=== PATIENT | female | born 1955 | race Caucasian/White ===

== ENCOUNTER 2017-02-06 10:25 | Emergency (ER) | payer OTHER ==
[~2017-02-06] VITALS: Ht 152.4 cm; Wt 50.0 kg
[~2017-02-06 10:25] MED LIST: FOLI-43 PO; LACO100T2 PO; LAMO200T PO; LEVE1000 PO; LEVO50TA8 PO; TOPI100T37 PO; TRAZ-129 PO
[2017-02-06 12:21] LABS: CLARITY URINE CLEAR (CLEAR); COLOR URINE YELLOW (YELLOW); GLUCOSE URINE NEGATIVE (NEGATIVE); KETONES URINE NEGATIVE (NEGATIVE); LEUKOCYTE ESTERASE URINE NEGATIVE (NEGATIVE); NITRITE URINE NEGATIVE (NEGATIVE); OCCULT BLOOD URINE NEGATIVE (NEGATIVE); PH URINE 5.5 (4.5-8.0); PROTEIN URINE 1+ (NEGATIVE); SPECIFIC GRAVITY URINE 1.025 (1.005-1.030); UROBILINOGEN URINE 0.2 E.U./dL (0.2-1.0)
[2017-02-06 12:23] LABS: HEMATOCRIT. 40.6 % (36.0-48.0); HEMOGLOBIN. 13.5 g/dL (12.0-16.0); MEAN CORPUSCULAR VOLUME 102.1 fL (81.0-99.0); MEAN PLATELET VOLUME 7.6 fl (7.4-10.4); PLATELET 163 x1000/uL (130-400); RED BLOOD CELL COUNT 3.98 mill/uL (4.2-5.4); RED CELL DISTRIBUTION WIDTH 12.7 % (11.6-14.6)
[2017-02-06 12:28] LABS: INR 1.1; PROTHROMBIN TIME 11.6 sec
[2017-02-06] MEDS ORDERED: HYDROCODONE/ACETAMINOPHEN 5/325MG TABLET PO ONE (12:30)
[2017-02-06 12:38] LABS: CARBON DIOXIDE 21 mEq/L (21-32); CHLORIDE 115 mEq/L (98-107); TROPONIN I < 0.02 ng/mL (0.00-0.04)
[2017-02-06 13:12] LABS: PLATELET ESTIMATE NORMAL
[2017-02-06 16:00] VITALS: BP 109/68
== END 2017-02-06 16:01 | disposition home or self-care (01) ==
LOC: ER 12:30
DX: M54.2 Cervicalgia (principal); M54.6 Pain in thoracic spine; R42 Dizziness and giddiness; E27.8 Other specified disorders of adrenal gland; Z88.8 Allergy status to other drugs, medicaments and biological substances; W19.XXXA Unspecified fall, initial encounter; Y93.89 Activity, other specified; Y92.89 Other specified places as the place of occurrence of the external cause; Y99.8 Other external cause status
CPT/HCPCS: 36415; 70450; 71010; 72125; 72128; 80053; 81001; 83880; 84484; 85025; 85610; 93005; 99285

== ENCOUNTER 2017-03-09 12:16 | Emergency (ER) | payer OTHER ==
[~2017-03-09] VITALS: Ht 152.4 cm; Wt 57.0 kg
[2017-03-09] MEDS ORDERED: BACITRACIN ZINC OINT UDPKT TOP ONE (13:45)
[2017-03-09] MEDS ORDERED: ACETAMINOPHEN 325MG TABLET PO ONE (13:45)
[2017-03-09 16:15] VITALS: BP 123/73
== END 2017-03-09 16:28 | disposition home or self-care (01) ==
LOC: ER 13:36
DX: S40.212A Abrasion of left shoulder, initial encounter (principal); R51 Headache; M54.5 Low back pain; M54.6 Pain in thoracic spine; M25.512 Pain in left shoulder; M54.2 Cervicalgia; R20.0 Anesthesia of skin; Y93.89 Activity, other specified; V79.59XA Passenger on bus injured in collision with other motor vehicles in traffic accident, initial encounter; Y92.410 Unspecified street and highway as the place of occurrence of the external cause; G40.909 Epilepsy, unspecified, not intractable, without status epilepticus; Z90.49 Acquired absence of other specified parts of digestive tract; Z79.899 Other long term (current) drug therapy
CPT/HCPCS: 70450; 72070; 72100; 72125; 73030; 99284

== ENCOUNTER 2017-09-07 16:34 | Emergency (ER) | payer OTHER ==
[~2017-09-07] VITALS: Ht 149.9 cm; Wt 65.0 kg
[2017-09-07 18:50] VITALS: BP 132/82
[2017-09-07] MEDS: KETOROLAC 60MG/2ML VIAL IM ONE (18:50)
[2017-09-07 19:43] LABS: BASOPHILS % 0.3 % (0.0-2.0); EOSINOPHILS % 0.8 % (0.0-5.0); HEMATOCRIT. 41.8 % (36.0-48.0); HEMOGLOBIN. 13.8 g/dL (12.0-16.0); LYMPHOCYTES % 11.6 % (20.0-50.0); MEAN CORPUSCULAR HEMOGLOBIN 33.8 pg (28.0-32.0); MEAN CORPUSCULAR VOLUME 102.2 fL (81.0-99.0); MONOCYTES % 5.1 % (2.0-8.0); NEUTROPHILS % 82.2 % (40.0-76.0); PLATELET 185 x1000/uL (130-400); RED BLOOD CELL COUNT 4.09 mill/uL (4.2-5.4)
[2017-09-07 19:47] LABS: INR 1.1; PROTHROMBIN TIME 11.3 sec (9.4-11.6)
[2017-09-07 19:51] LABS: CHLORIDE 114 mEq/L (98-107)
[2017-09-07 19:58] LABS: TROPONIN I < 0.02 ng/mL (0.00-0.04)
[2017-09-07] MEDS: ACETAMINOPHEN 325MG TABLET PO ONE (20:15)
== END 2017-09-07 22:08 | disposition home or self-care (01) ==
LOC: ER 19:01
DX: R07.89 Other chest pain (principal); R51 Headache; Y04.0XXA Assault by unarmed brawl or fight, initial encounter; F41.9 Anxiety disorder, unspecified; E78.00 Pure hypercholesterolemia, unspecified; J44.9 Chronic obstructive pulmonary disease, unspecified
CPT/HCPCS: 36415; 71045; 80053; 83880; 84484; 85025; 85610; 93005; 96372; 99285; J1885

== ENCOUNTER 2017-10-08 19:18 | Emergency (ER) | payer OTHER ==
[~2017-10-08] VITALS: Ht 154.9 cm; Wt 51.0 kg
[2017-10-08] MEDS ORDERED: SODIUM CHLORIDE 0.9% 1,000 ML IV ONE (19:49)
[2017-10-08] MEDS ORDERED: KETOROLAC 30MG/ML VIAL IV ONE (20:00)
[2017-10-08 20:19] LABS: BASOPHILS % 0.5 % (0.0-2.0); HEMATOCRIT. 39.1 % (36.0-48.0); HEMOGLOBIN. 13.1 g/dL (12.0-16.0); LYMPHOCYTES % 11.5 % (20.0-50.0); MEAN CORPUSCULAR HEMOGLOBIN 34.2 pg (28.0-32.0); MEAN CORPUSCULAR VOLUME 101.6 fL (81.0-99.0); MEAN PLATELET VOLUME 8.1 fl (7.4-10.4); MONOCYTES % 4.4 % (2.0-8.0); NEUTROPHILS % 82.6 % (40.0-76.0); PLATELET 155 x1000/uL (130-400); RED BLOOD CELL COUNT 3.85 mill/uL (4.2-5.4); RED CELL DISTRIBUTION WIDTH 12.9 % (11.6-14.6)
[2017-10-08 20:28] LABS: CHLORIDE 116 mEq/L (98-107)
[2017-10-08] MEDS ORDERED: POTASSIUM CHLORIDE 20MEQ TABLET SR PO ONE (21:15)
[2017-10-08 22:25] VITALS: BP 122/70
== END 2017-10-08 22:27 | disposition home or self-care (01) ==
LOC: ER 19:49
DX: E87.6 Hypokalemia (principal); I10 Essential (primary) hypertension; F41.9 Anxiety disorder, unspecified
CPT/HCPCS: 36415; 80048; 85025; 96361; 96374; 99284; C1893; J1885; J7030; J7040; Z7610

== ENCOUNTER 2017-10-09 13:29 | Emergency (ER) | payer OTHER ==
[~2017-10-09] VITALS: Ht 162.6 cm; Wt 55.0 kg
[2017-10-09 18:30] VITALS: BP 121/68
== END 2017-10-09 18:48 | disposition home or self-care (01) ==
LOC: ER 13:29
DX: M25.512 Pain in left shoulder (principal); M25.552 Pain in left hip; M79.1 Myalgia; H53.8 Other visual disturbances; I10 Essential (primary) hypertension; F41.9 Anxiety disorder, unspecified
CPT/HCPCS: 71045; 99283

== ENCOUNTER 2017-10-11 22:26 | Emergency (ER) | payer OTHER ==
[~2017-10-11] VITALS: Ht 154.9 cm; Wt 64.0 kg
[2017-10-11 23:12] LABS: HEMATOCRIT. 41.2 % (36.0-48.0); HEMOGLOBIN. 13.9 g/dL (12.0-16.0); MEAN CORPUSCULAR HEMOGLOBIN 34.4 pg (28.0-32.0); MEAN CORPUSCULAR VOLUME 101.8 fL (81.0-99.0); MEAN PLATELET VOLUME 8.2 fl (7.4-10.4); PLATELET 174 x1000/uL (130-400); RED BLOOD CELL COUNT 4.05 mill/uL (4.2-5.4)
[2017-10-11 23:14] LABS: CHLORIDE 111 mEq/L (98-107)
[2017-10-12 02:53] LABS: CLARITY URINE CLEAR (CLEAR); COLOR URINE YELLOW (YELLOW); KETONES URINE NEGATIVE (NEGATIVE); LEUKOCYTE ESTERASE URINE NEGATIVE (NEGATIVE); NITRITE URINE NEGATIVE (NEGATIVE); OCCULT BLOOD URINE NEGATIVE (NEGATIVE); PH URINE 5.5 (4.5-8.0); PROTEIN URINE NEGATIVE (NEGATIVE); SPECIFIC GRAVITY URINE 1.016 (1.005-1.030); UROBILINOGEN URINE 0.2 E.U./dL (0.2-1.0)
[2017-10-12 03:14] LABS: PLATELET ESTIMATE NORMAL
[2017-10-12 03:45] VITALS: BP 139/88
== END 2017-10-12 04:15 | disposition home or self-care (01) ==
LOC: ER 22:26
DX: N20.0 Calculus of kidney (principal); L72.3 Sebaceous cyst; E27.9 Disorder of adrenal gland, unspecified; R42 Dizziness and giddiness; E03.9 Hypothyroidism, unspecified; G40.909 Epilepsy, unspecified, not intractable, without status epilepticus; Z98.890 Other specified postprocedural states; Z93.3 Colostomy status
CPT/HCPCS: 36415; 74176; 80053; 81003; 85025; 93005; 99285; Z7610

== ENCOUNTER 2018-01-04 18:31 | Emergency (ER) | payer OTHER ==
[~2018-01-04] VITALS: Ht 154.9 cm; Wt 50.0 kg
[2018-01-04 19:20] LABS: BASOPHILS % 0.4 % (0.0-2.0); EOSINOPHILS % 1.9 % (0.0-5.0); HEMOGLOBIN. 12.6 g/dL (12.0-16.0); LYMPHOCYTES % 12.1 % (20.0-50.0); MEAN CORPUSCULAR HEMOGLOBIN 34.2 pg (28.0-32.0); MEAN CORPUSCULAR VOLUME 102.8 fL (81.0-99.0); MEAN PLATELET VOLUME 7.6 fl (7.4-10.4); MONOCYTES % 4.8 % (2.0-8.0); NEUTROPHILS % 80.8 % (40.0-76.0); PLATELET 153 x1000/uL (130-400); RED CELL DISTRIBUTION WIDTH 12.9 % (11.6-14.6)
[2018-01-04] MEDS ORDERED: MECLIZINE 25MG TABLET PO ONE (19:30)
[2018-01-04 23:11] VITALS: BP 123/63
== END 2018-01-04 23:13 | disposition home or self-care (01) ==
LOC: ER 19:43
DX: R42 Dizziness and giddiness (principal); H55.09 Other forms of nystagmus; I10 Essential (primary) hypertension; G40.909 Epilepsy, unspecified, not intractable, without status epilepticus; Z79.899 Other long term (current) drug therapy
CPT/HCPCS: 36415; 80048; 85025; 99284; J8597

== ENCOUNTER 2018-05-10 07:16 | Emergency (ER) | payer OTHER ==
[~2018-05-10] VITALS: Ht 152.4 cm; Wt 66.0 kg
[~2018-05-10 07:16] MED LIST changes: -TRAZ-129 PO; +TRAZ-212 PO
[2018-05-10] MEDS ORDERED: ASPIRIN 81MG TABLET PO ONE (08:45)
[2018-05-10 09:40] LABS: BASOPHILS % 0.6 % (0.0-2.0); EOSINOPHILS % 2.9 % (0.0-5.0); HEMATOCRIT. 43.5 % (36.0-48.0); HEMOGLOBIN. 14.2 g/dL (12.0-16.0); LYMPHOCYTES % 19.5 % (20.0-50.0); MEAN CORPUSCULAR HEMOGLOBIN 33.8 pg (28.0-32.0); MEAN CORPUSCULAR VOLUME 103.6 fL (81.0-99.0); MONOCYTES % 6.1 % (2.0-8.0); NEUTROPHILS % 70.9 % (40.0-76.0); PLATELET 177 x1000/uL (130-400); RED CELL DISTRIBUTION WIDTH 12.9 % (11.6-14.6)
[2018-05-10 09:46] LABS: INR 1.1; PROTHROMBIN TIME 10.6 sec (9.1-11.1)
[2018-05-10 09:50] LABS: CHLORIDE 117 mEq/L (98-107)
[2018-05-10 09:55] LABS: CLARITY URINE CLEAR (CLEAR); COLOR URINE YELLOW (YELLOW); KETONES URINE NEGATIVE (NEGATIVE); LEUKOCYTE ESTERASE URINE NEGATIVE (NEGATIVE); NITRITE URINE NEGATIVE (NEGATIVE); OCCULT BLOOD URINE NEGATIVE (NEGATIVE); PH URINE 5.5 (4.5-8.0); PROTEIN URINE NEGATIVE (NEGATIVE); UROBILINOGEN URINE 0.2 E.U./dL (0.2-1.0)
[2018-05-10 13:21] VITALS: BP 106/71
== END 2018-05-10 13:23 | disposition home or self-care (01) ==
LOC: ER 07:16
DX: R07.89 Other chest pain (principal); G40.909 Epilepsy, unspecified, not intractable, without status epilepticus; D72.819 Decreased white blood cell count, unspecified; R00.1 Bradycardia, unspecified; Z93.3 Colostomy status; Z95.0 Presence of cardiac pacemaker; Z85.038 Personal history of other malignant neoplasm of large intestine; Z98.890 Other specified postprocedural states
CPT/HCPCS: 36415; 71045; 81025; 83880; 84484; 93005; 99285

== ENCOUNTER 2019-08-11 10:18 | Emergency (ER) | payer OTHER ==
[~2019-08-11] VITALS: Ht 152.4 cm; Wt 54.0 kg
[~2019-08-11 10:18] MED LIST changes: +ASPI-1158 PO; +KEPP500 PO; -LACO100T2 PO; +LACO150T2 PO; +LAM1 PO; -LAMO200T PO; -LEVE1000 PO; -LEVO50TA8 PO; +TOP100 PO; -TOPI100T37 PO; -TRAZ-212 PO
[2019-08-11] MEDS ORDERED: VISCOUS LIDOCAINE 2% 15 ML UDC PO ONE (13:30)
[2019-08-11] MEDS ORDERED: MAGNESIUM/ALUMINUM HYDROXIDE/SIMETHICONE 30ML UDC PO ONE (13:30)
[2019-08-11] MEDS ORDERED: DICYCLOMINE 10 MG/5 ML ORAL SYR PO ONE (13:30)
[2019-08-11 14:58] LABS: HEMATOCRIT. 44.5 % (36.0-48.0); HEMOGLOBIN. 14.4 g/dL (12.0-16.0); MEAN CORPUSCULAR HEMOGLOBIN 33.9 pg (28.0-32.0); MEAN CORPUSCULAR VOLUME 104.8 fL (81.0-99.0); MEAN PLATELET VOLUME 7.7 fl (7.4-10.4); PLATELET 162 x1000/uL (130-400); RED BLOOD CELL COUNT 4.24 mill/uL (4.2-5.4); RED CELL DISTRIBUTION WIDTH 13.2 % (11.6-14.6)
[2019-08-11 15:03] LABS: CHLORIDE 116 mEq/L (98-107)
[2019-08-11] MEDS ORDERED: ONDANSETRON HCL 4MG/2ML INJ IV STA (15:21)
[2019-08-11] MEDS ORDERED: MORPHINE SULFATE 4 MG/ML CPJ (NOT FOR IM USE) IV STA (15:21)
[2019-08-11 15:39] LABS: PLATELET ESTIMATE NORMAL
[2019-08-11 19:35] VITALS: BP 110/51
== END 2019-08-11 19:40 | disposition short-term general hospital (02) ==
LOC: ER 10:18
DX: R10.9 Unspecified abdominal pain (principal); K85.90 Acute pancreatitis without necrosis or infection, unspecified; I51.9 Heart disease, unspecified; R56.9 Unspecified convulsions; Z93.3 Colostomy status; Z95.0 Presence of cardiac pacemaker; Z79.82 Long term (current) use of aspirin; Z90.49 Acquired absence of other specified parts of digestive tract
CPT/HCPCS: 36415; 71045; 74176; 80053; 83690; 83880; 84484; 85025; 93005; 96374; 96375; 99285; J2270; J2405

== ENCOUNTER 2019-08-23 09:11 | Emergency (ER) | payer OTHER ==
[~2019-08-23] VITALS: Ht 152.4 cm; Wt 54.0 kg
[2019-08-23] MEDS ORDERED: ONDANSETRON HCL 4MG/2ML INJ IV STA (09:33)
[2019-08-23] MEDS ORDERED: FAMOTIDINE 20MG/2ML VIAL IV STA (09:33)
[2019-08-23] MEDS ORDERED: SODIUM CHLORIDE 0.9% 1,000 ML IV ONE (09:33)
[2019-08-23 10:03] LABS: CHLORIDE 119 mEq/L (98-107); HEMATOCRIT. 39.6 % (36.0-48.0); HEMOGLOBIN. 13.1 g/dL (12.0-16.0); MEAN CORPUSCULAR VOLUME 103.2 fL (81.0-99.0); RED BLOOD CELL COUNT 3.84 mill/uL (4.2-5.4); RED CELL DISTRIBUTION WIDTH 12.6 % (11.6-14.6)
[2019-08-23 10:04] LABS: INR 1.1
[2019-08-23 10:30] LABS: PLATELET ESTIMATE NORMAL
[2019-08-23 11:38] LABS: CLARITY URINE CLEAR (CLEAR); COLOR URINE YELLOW (YELLOW); KETONES URINE NEGATIVE (NEGATIVE); LEUKOCYTE ESTERASE URINE NEGATIVE (NEGATIVE); NITRITE URINE NEGATIVE (NEGATIVE); OCCULT BLOOD URINE NEGATIVE (NEGATIVE); PH URINE 5.5 (4.5-8.0); PROTEIN URINE NEGATIVE (NEGATIVE); SPECIFIC GRAVITY URINE 1.014 (1.005-1.030); UROBILINOGEN URINE 0.2 E.U./dL (0.2-1.0)
[2019-08-23] MEDS ORDERED: MORPHINE SULFATE 4 MG/ML CPJ (NOT FOR IM USE) IV NR (12:30)
[2019-08-23] MEDS ORDERED: ONDANSETRON HCL 4MG/2ML INJ IV NR (12:30)
[2019-08-23 17:30] VITALS: BP 93/63
== END 2019-08-23 18:14 | disposition short-term general hospital (02) ==
LOC: ER 09:11
DX: K85.90 Acute pancreatitis without necrosis or infection, unspecified (principal); I51.9 Heart disease, unspecified; R42 Dizziness and giddiness; R51 Headache; R11.2 Nausea with vomiting, unspecified; R10.11 Right upper quadrant pain; R10.12 Left upper quadrant pain; Z90.49 Acquired absence of other specified parts of digestive tract; Z95.0 Presence of cardiac pacemaker; Z93.3 Colostomy status; Z79.899 Other long term (current) drug therapy; Z79.82 Long term (current) use of aspirin
CPT/HCPCS: 36415; 80053; 81003; 83690; 85025; 85610; 93005; 96361; 96374; 96375; 96376; 99285; J2270; J2405; J3490; J7030

== ENCOUNTER 2020-11-25 10:08 | Emergency (ER) | payer OTHER ==
[~2020-11-25] VITALS: Ht 165.1 cm; Wt 55.0 kg
[~2020-11-25 10:08] MED LIST changes: -ASPI-1158 PO; +ASPI-1406 PO
[2020-11-25 12:45] LABS: BASOPHILS % 0.3 % (0.0-2.0); EOSINOPHILS % 0.1 % (0.0-5.0); HEMATOCRIT. 40.6 % (36.0-48.0); HEMOGLOBIN. 13.6 g/dL (12.0-16.0); MEAN CORPUSCULAR HEMOGLOBIN 34.8 pg (28.0-32.0); MEAN CORPUSCULAR VOLUME 103.3 fL (81.0-99.0); MEAN PLATELET VOLUME 7.3 fl (7.4-10.4); MONOCYTES % 2.5 % (2.0-8.0); NEUTROPHILS % 88.1 % (40.0-76.0); PLATELET 162 x1000/uL (130-400); RED BLOOD CELL COUNT 3.93 mill/uL (4.2-5.4); RED CELL DISTRIBUTION WIDTH 12.4 % (11.6-14.6)
[2020-11-25 12:49] LABS: CHLORIDE 119 mEq/L (98-107)
[2020-11-25 12:53] LABS: ETHANOL BLOOD < 10 mg/dL
[2020-11-25 12:55] LABS: CLARITY URINE CLEAR (CLEAR); COLOR URINE YELLOW (YELLOW); KETONES URINE NEGATIVE (NEGATIVE); LEUKOCYTE ESTERASE URINE NEGATIVE (NEGATIVE); NITRITE URINE NEGATIVE (NEGATIVE); OCCULT BLOOD URINE NEGATIVE (NEGATIVE); PROTEIN URINE NEGATIVE (NEGATIVE); SPECIFIC GRAVITY URINE 1.011 (1.005-1.030); UROBILINOGEN URINE 0.2 E.U./dL (0.2-1.0)
[2020-11-25 12:58] LABS: PROTHROMBIN TIME 11.2 sec (9.6-11.0)
[2020-11-25 13:04] LABS: *AMPHETAMINES SCREEN URINE NEGATIVE (NEGATIVE); *BARBITURATES SCREEN URINE NEGATIVE (NEGATIVE); *BENZODIAZEPINES SCREEN URINE NEGATIVE (NEGATIVE)
[2020-11-25 13:06] LABS: *COCAINE SCREEN URINE NEGATIVE (NEGATIVE); CANNABINOID URINE SCREEN NEGATIVE (NEGATIVE); METHADONE URINE SCREEN NEGATIVE (NEGATIVE); OPIATES URINE SCREEN NEGATIVE (NEGATIVE); PHENCYCLIDINE URINE SCREEN NEGATIVE (NEGATIVE)
[2020-11-25] MEDS ORDERED: PROCHLORPERAZINE 10MG/2ML VIAL IV ONE (13:45)
[2020-11-25 16:18] VITALS: BP 102/54
== END 2020-11-25 16:58 | disposition home or self-care (01) ==
LOC: ER 10:08
DX: R51.9 Headache, unspecified (principal); R11.2 Nausea with vomiting, unspecified; I51.9 Heart disease, unspecified; Z87.19 Personal history of other diseases of the digestive system; Z90.49 Acquired absence of other specified parts of digestive tract; Z95.0 Presence of cardiac pacemaker; Z98.890 Other specified postprocedural states; Z79.899 Other long term (current) drug therapy
CPT/HCPCS: 36415; 71045; 80053; 80305; 80320; 81003; 83690; 85025; 85610; 96374; 99285; J0780; G0480

== ENCOUNTER 2022-05-06 09:10 | Inpatient (IN) | payer OTHER ==
[~2022-05-06] VITALS: Ht 160 cm; Wt 58.5 kg
[2022-05-06] MEDS ORDERED: ASPIRIN 81MG TABLET PO ONE (09:30)
[2022-05-06] MEDS ORDERED: NITROGLYCERIN 0.4MG TABLET SL SL PRN (09:30)
[2022-05-06 09:59] LABS: BASOPHILS % 0.1 % (0.0-2.0); EOSINOPHILS % 0.5 % (0.0-5.0); HEMATOCRIT. 40.8 % (36.0-48.0); HEMOGLOBIN. 13.2 g/dL (12.0-16.0); LYMPHOCYTES % 8.6 % (20.0-50.0); MEAN CORPUSCULAR HEMOGLOBIN 33.5 pg (28.0-32.0); MEAN CORPUSCULAR VOLUME 103.2 fL (81.0-99.0); MEAN PLATELET VOLUME 7.8 fl (7.4-10.4); MONOCYTES % 3.2 % (2.0-8.0); NEUTROPHILS % 87.6 % (40.0-76.0); PLATELET 208 x1000/uL (130-400); RED BLOOD CELL COUNT 3.95 mill/uL (4.2-5.4); RED CELL DISTRIBUTION WIDTH 13.2 % (11.6-14.6)
[2022-05-06 10:01] LABS: CHLORIDE 114 mEq/L (98-107)
[2022-05-06] MEDS ORDERED: ONDANSETRON HCL 4MG/2ML INJ IV STA (11:14)
[2022-05-06] MEDS ORDERED: MORPHINE SULFATE 4 MG/ML CPJ (NOT FOR IM USE) IV STA (11:14)
[2022-05-06 16:30] VITALS: BP 116/65
[2022-05-06 20:00] VITALS: BP 119/67
[2022-05-06] MEDS ORDERED: NALOXONE HCL 0.4MG/ML VIAL IV PRN (22:00)
[2022-05-06] MEDS ORDERED: HYDROCODONE/ACETAMINOPHEN 5/325MG TABLET PO PRN (22:00)
[2022-05-07] VITALS: BP 118/53
[2022-05-07] MEDS: SODIUM CHLORIDE 0.9% 1,000 ML IV SCH ×3 (00:47→16:45)
[2022-05-07 04:00] VITALS: BP 95/54
[2022-05-07 07:21] LABS: CHLORIDE 117 mEq/L (98-107)
[2022-05-07 07:33] LABS: BASOPHILS % 0.3 % (0.0-2.0); EOSINOPHILS % 1.6 % (0.0-5.0); GAMMA GLUTAMYL TRANSPEPTIDASE 23 IU/L (7-32); HEMATOCRIT. 36.2 % (36.0-48.0); LYMPHOCYTES % 9.5 % (20.0-50.0); MEAN CORPUSCULAR HEMOGLOBIN 34.2 pg (28.0-32.0); MEAN CORPUSCULAR VOLUME 103.2 fL (81.0-99.0); MEAN PLATELET VOLUME 7.9 fl (7.4-10.4); MONOCYTES % 5.1 % (2.0-8.0); NEUTROPHILS % 83.5 % (40.0-76.0); PLATELET 166 x1000/uL (130-400); RED BLOOD CELL COUNT 3.51 mill/uL (4.2-5.4); RED CELL DISTRIBUTION WIDTH 13.3 % (11.6-14.6)
[2022-05-07 08:00] VITALS: BP 112/66
[2022-05-07] MEDS ORDERED: GABA-529 PO (10:30)
[2022-05-07] MEDS ORDERED: LAMOTRIGINE 150MG TABLET PO SCH (10:30)
[2022-05-07] MEDS ORDERED: LEVETIRACETAM 500MG TABLET PO SCH (10:30)
[2022-05-07] MEDS ORDERED: LAMO150T5 PO (10:32)
[2022-05-07] MEDS ORDERED: LEVE750T4 PO (10:33)
[2022-05-07] MEDS ORDERED: ESLI600T PO (10:34)
[2022-05-07] MEDS ORDERED: TOPI100T37 PO (10:36)
[2022-05-07] MEDS: LAMOTRIGINE 150MG TABLET PO SCH ×2 (11:00→17:00)
[2022-05-07] MEDS: LEVETIRACETAM 500MG TABLET PO SCH ×2 (11:16→17:59)
[2022-05-07] MEDS: PANTOPRAZOLE 40MG DR TABLET PO SCH (11:16)
[2022-05-07] MEDS: FOLIC ACID 1MG TABLET PO SCH (11:16)
[2022-05-07] MEDS: GABAPENTIN 100MG CAPSULE PO SCH ×2 (11:27→18:00)
[2022-05-07 12:00] VITALS: BP 112/66
[2022-05-07] MEDS ORDERED: TOPIRAMATE 100MG TABLET PO SCH ×2 (12:00→18:00)
[2022-05-07] MEDS: TOPIRAMATE 100MG TABLET PO SCH ×2 (13:00→17:00)
[2022-05-07 16:00] VITALS: BP 119/60
[2022-05-07] MEDS ORDERED: *PATIENT'S OWN MEDICATION STORAGE XX SCH (17:30)
[2022-05-07] MEDS ORDERED: LAMOTRIGINE 100MG TABLET PO SCH (18:00)
[2022-05-07 20:00] VITALS: BP 115/64
[2022-05-07] MEDS: LACOSAMIDE 150 MG PO SCH (20:16)
[2022-05-08] VITALS: BP 109/77
[2022-05-08] MEDS: SODIUM CHLORIDE 0.9% 1,000 ML IV SCH ×2 (00:45→21:28)
[2022-05-08 04:00] VITALS: BP 102/80
[2022-05-08 07:50] LABS: BASOPHILS % 0.4 % (0.0-2.0); EOSINOPHILS % 1.9 % (0.0-5.0); HEMATOCRIT. 40.9 % (36.0-48.0); HEMOGLOBIN. 13.2 g/dL (12.0-16.0); MEAN CORPUSCULAR HEMOGLOBIN 33.7 pg (28.0-32.0); MEAN CORPUSCULAR VOLUME 104.8 fL (81.0-99.0); MEAN PLATELET VOLUME 7.9 fl (7.4-10.4); MONOCYTES % 3.4 % (2.0-8.0); NEUTROPHILS % 83.3 % (40.0-76.0); PLATELET 181 x1000/uL (130-400); RED CELL DISTRIBUTION WIDTH 13.1 % (11.6-14.6)
[2022-05-08] MEDS: FOLIC ACID 1MG TABLET PO SCH (08:54)
[2022-05-08] MEDS: LEVETIRACETAM 500MG TABLET PO SCH ×2 (08:55→17:53)
[2022-05-08] MEDS: GABAPENTIN 100MG CAPSULE PO SCH ×2 (08:55→17:53)
[2022-05-08] MEDS: ASPIRIN 81MG EC TABLET PO SCH (08:55)
[2022-05-08] MEDS: TOPIRAMATE 100MG TABLET PO SCH ×2 (08:55→17:52)
[2022-05-08] MEDS: PANTOPRAZOLE 40MG DR TABLET PO SCH (08:55)
[2022-05-08] MEDS: LACOSAMIDE 150 MG PO SCH ×2 (08:56→21:27)
[2022-05-08 09:33] LABS: CHLORIDE 113 mEq/L (98-107)
[2022-05-08] MEDS ORDERED: DEXTROSE 50% WATER 50ML SYRINGE IV PRN (11:30)
[2022-05-08] MEDS: LAMOTRIGINE 150MG TABLET PO SCH (17:52)
[2022-05-08 20:00] VITALS: BP 116/58
[2022-05-09] VITALS: BP 122/60
[2022-05-09] MEDS: SODIUM CHLORIDE 0.9% 1,000 ML IV SCH (00:18)
[2022-05-09 04:00] VITALS: BP 118/64
[2022-05-09] MEDS: PANTOPRAZOLE 40MG DR TABLET PO SCH (06:39)
[2022-05-09 08:19] LABS: CHLORIDE 114 mEq/L (98-107)
[2022-05-09] MEDS: LACOSAMIDE 150 MG PO SCH ×2 (09:00→23:31)
[2022-05-09 09:49] LABS: BASOPHILS % 0.4 % (0.0-2.0); EOSINOPHILS % 4.4 % (0.0-5.0); HEMATOCRIT. 38.1 % (36.0-48.0); HEMOGLOBIN. 12.8 g/dL (12.0-16.0); LYMPHOCYTES % 10.2 % (20.0-50.0); MEAN CORPUSCULAR HEMOGLOBIN 34.2 pg (28.0-32.0); MEAN CORPUSCULAR VOLUME 101.3 fL (81.0-99.0); MEAN PLATELET VOLUME 7.3 fl (7.4-10.4); MONOCYTES % 4.5 % (2.0-8.0); NEUTROPHILS % 80.5 % (40.0-76.0); RED BLOOD CELL COUNT 3.76 mill/uL (4.2-5.4); RED CELL DISTRIBUTION WIDTH 12.9 % (11.6-14.6)
[2022-05-09 09:52] LABS: PLATELET 199 x1000/uL (130-400)
[2022-05-09] MEDS: ASPIRIN 81MG EC TABLET PO SCH (11:03)
[2022-05-09] MEDS: LAMOTRIGINE 150MG TABLET PO SCH ×2 (11:04→19:43)
[2022-05-09] MEDS: TOPIRAMATE 100MG TABLET PO SCH ×2 (11:04→19:43)
[2022-05-09] MEDS: FOLIC ACID 1MG TABLET PO SCH (11:04)
[2022-05-09] MEDS: GABAPENTIN 100MG CAPSULE PO SCH ×2 (11:04→19:43)
[2022-05-09] MEDS: LEVETIRACETAM 500MG TABLET PO SCH ×2 (11:04→19:43)
[2022-05-10] MEDS: SODIUM CHLORIDE 0.9% 1,000 ML IV SCH (01:31)
[2022-05-10 08:00] VITALS: BP 89/49
[2022-05-10] MEDS: LACOSAMIDE 150 MG PO SCH ×2 (09:00→20:22)
[2022-05-10 09:16] LABS: BASOPHILS % 0.3 % (0.0-2.0); EOSINOPHILS % 4.2 % (0.0-5.0); HEMATOCRIT. 34.9 % (36.0-48.0); HEMOGLOBIN. 11.8 g/dL (12.0-16.0); LYMPHOCYTES % 11.5 % (20.0-50.0); MEAN CORPUSCULAR HEMOGLOBIN 34.6 pg (28.0-32.0); MEAN PLATELET VOLUME 7.7 fl (7.4-10.4); MONOCYTES % 6.4 % (2.0-8.0); NEUTROPHILS % 77.6 % (40.0-76.0); PLATELET 170 x1000/uL (130-400); RED BLOOD CELL COUNT 3.42 mill/uL (4.2-5.4); RED CELL DISTRIBUTION WIDTH 12.8 % (11.6-14.6)
[2022-05-10] MEDS: PANTOPRAZOLE 40MG DR TABLET PO SCH (09:37)
[2022-05-10] MEDS: ASPIRIN 81MG EC TABLET PO SCH (09:37)
[2022-05-10] MEDS: LEVETIRACETAM 500MG TABLET PO SCH ×2 (09:37→17:44)
[2022-05-10] MEDS: FOLIC ACID 1MG TABLET PO SCH (09:37)
[2022-05-10] MEDS: GABAPENTIN 100MG CAPSULE PO SCH ×2 (09:37→17:44)
[2022-05-10] MEDS: TOPIRAMATE 100MG TABLET PO SCH ×2 (09:37→17:45)
[2022-05-10] MEDS: LAMOTRIGINE 150MG TABLET PO SCH ×2 (09:41→17:45)
[2022-05-10 12:00] VITALS: BP 94/44
[2022-05-10] MEDS ORDERED: HYDR-4001 PO (14:38)
[2022-05-10 16:00] VITALS: BP 102/52
[2022-05-10 20:00] VITALS: BP 104/55
[2022-05-11] VITALS: BP 131/79
[2022-05-11 04:00] VITALS: BP 118/70
[2022-05-11] MEDS: PANTOPRAZOLE 40MG DR TABLET PO SCH ×2 (06:40→09:42)
[2022-05-11] MEDS: FOLIC ACID 1MG TABLET PO SCH (09:43)
[2022-05-11] MEDS: LEVETIRACETAM 500MG TABLET PO SCH (09:43)
[2022-05-11] MEDS: GABAPENTIN 100MG CAPSULE PO SCH (09:43)
[2022-05-11] MEDS: LAMOTRIGINE 150MG TABLET PO SCH (09:43)
[2022-05-11] MEDS: ASPIRIN 81MG EC TABLET PO SCH (09:43)
[2022-05-11] MEDS: TOPIRAMATE 100MG TABLET PO SCH (09:43)
[2022-05-11 10:24] VITALS: BP 75/37
== END 2022-05-11 11:00 | disposition home or self-care (01) | DRG 282 ==
LOC: ER 09:10 → 6EST 11:41 → EDBEDREQSVC 11:46 → EDBEDREQ 11:46 → EDBEDREQTM 11:46 → ENRESERV 15:28 → 6EST 05-08 10:26
PROVIDERS: ADMIT Internal Medicine; ATTEND Internal Medicine
DX: K85.90 Acute pancreatitis without necrosis or infection, unspecified (principal); K29.71 Gastritis, unspecified, with bleeding; R65.10 Systemic inflammatory response syndrome (SIRS) of non-infectious origin without acute organ dysfunction; E27.9 Disorder of adrenal gland, unspecified; I10 Essential (primary) hypertension; G40.909 Epilepsy, unspecified, not intractable, without status epilepticus; R07.9 Chest pain, unspecified; E03.9 Hypothyroidism, unspecified; L72.3 Sebaceous cyst; Z90.49 Acquired absence of other specified parts of digestive tract; K86.1 Other chronic pancreatitis; Z86.010 Personal history of colon polyps; Z93.3 Colostomy status; Z95.0 Presence of cardiac pacemaker; Z85.038 Personal history of other malignant neoplasm of large intestine
CPT/HCPCS: 36415; 71045; 74176; 76700; 80048; 80053; 82962; 82977; 83880; 84484; 85025; 93005; 99285; C1893; J2270; J2405; J7030

== ENCOUNTER 2022-08-15 12:05 | Emergency (ER) | payer MEDICARE, OTHER ==
[~2022-08-15] VITALS: Ht 144.8 cm; Wt 66.0 kg
[~2022-08-15 12:05] MED LIST changes: +ESLI600T PO; +GABA-529 PO; +HYDR-4001 PO; -KEPP500 PO; -LAM1 PO; +LAMO150T5 PO; +LEVE750T4 PO; -TOP100 PO; +TOPI100T37 PO
[2022-08-15 12:39] VITALS: BP 130/77
[2022-08-15] MEDS ORDERED: IBUPROFEN 600MG TABLET PO ONE (14:15)
[2022-08-15] MEDS ORDERED: IBUP-2029 MT (14:54)
== END 2022-08-15 15:34 | disposition home or self-care (01) ==
LOC: ER 12:05
DX: M99.11 Subluxation complex (vertebral) of cervical region (principal); Y04.0XXA Assault by unarmed brawl or fight, initial encounter; Y93.89 Activity, other specified; Y92.89 Other specified places as the place of occurrence of the external cause; Y99.8 Other external cause status
CPT/HCPCS: 71045; 72040; 72070; 99284

== ENCOUNTER 2022-08-22 08:34 | Emergency (ER) | payer MEDICARE, OTHER ==
[~2022-08-22] VITALS: Ht 157.5 cm; Wt 73.0 kg
[~2022-08-22 08:34] MED LIST changes: +IBUP-2029 MT
[2022-08-22 08:37] VITALS: BP 141/79
[2022-08-22] MEDS ORDERED: KETOROLAC 30MG/ML VIAL IV STA (08:38)
[2022-08-22] MEDS ORDERED: ONDANSETRON HCL 4MG/2ML INJ IV STA (08:38)
[2022-08-22 09:55] LABS: CHLORIDE 115 mEq/L (98-107)
[2022-08-22 09:58] LABS: BASOPHILS % 0.4 % (0.0-2.0); EOSINOPHILS % 0.4 % (0.0-5.0); HEMATOCRIT. 37.7 % (36.0-48.0); HEMOGLOBIN. 12.4 g/dL (12.0-16.0); LYMPHOCYTES % 15.8 % (20.0-50.0); MEAN CORPUSCULAR HEMOGLOBIN 33.8 pg (28.0-32.0); MEAN CORPUSCULAR VOLUME 102.9 fL (81.0-99.0); MEAN PLATELET VOLUME 8.4 fl (7.4-10.4); MONOCYTES % 3.1 % (2.0-8.0); NEUTROPHILS % 80.3 % (40.0-76.0); PLATELET 203 x1000/uL (130-400); RED BLOOD CELL COUNT 3.66 mill/uL (4.2-5.4); RED CELL DISTRIBUTION WIDTH 13.2 % (11.6-14.6)
[2022-08-22 11:06] LABS: INR 1.1; PROTHROMBIN TIME 11.4 sec (9.6-11.0)
[2022-08-22] MEDS ORDERED: TOPUD PO (11:09)
== END 2022-08-22 13:29 | disposition home or self-care (01) ==
LOC: ER 09:39
DX: R10.84 Generalized abdominal pain (principal); Z98.890 Other specified postprocedural states; Z86.59 Personal history of other mental and behavioral disorders
CPT/HCPCS: 36415; 74176; 80053; 83690; 85025; 85610; 96374; 96375; 99285; J1885; J2405

== ENCOUNTER 2023-06-18 10:59 | Emergency (ER) | payer MEDICARE, OTHER, MEDICAID ==
[~2023-06-18] VITALS: Ht 162.6 cm; Wt 55.5 kg
[~2023-06-18 10:59] MED LIST changes: +TOPUD PO
[2023-06-18 11:10] VITALS: O2SAT 100
[2023-06-18] MEDS ORDERED: ONDANSETRON HCL 4MG/2ML INJ IV STA (11:31)
[2023-06-18] MEDS ORDERED: KETOROLAC 30MG/ML VIAL IV STA (11:31)
[2023-06-18] MEDS ORDERED: SODIUM CHLORIDE 0.9% 1,000 ML IV ONE (11:45)
[2023-06-18 12:31] LABS: BASOPHILS % 0.8 % (0.0-2.0); DIFFERENTIAL COMMENT 0; EOSINOPHILS % 2.4 % (0.0-5.0); HEMATOCRIT. 39.9 % (36.0-48.0); HEMOGLOBIN. 12.7 g/dL (12.0-16.0); LYMPHOCYTES % 20.1 % (20.0-50.0); MEAN CORPUSCULAR HEMOGLOBIN 33.6 pg (28.0-32.0); MEAN CORPUSCULAR HGB CONC 31.9 g/dL (31.0-37.0); MEAN CORPUSCULAR VOLUME 105.2 fL (81.0-99.0); MEAN PLATELET VOLUME 8.3 fl (7.4-10.4); MONOCYTES % 4.5 % (2.0-8.0); NEUTROPHILS % 72.2 % (40.0-76.0); PLATELET 178 x1000/uL (130-400); RED BLOOD CELL COUNT 3.79 mill/uL (4.2-5.4); RED CELL DISTRIBUTION WIDTH 12.9 % (11.6-14.6)
[2023-06-18 12:37] LABS: CLARITY URINE CLEAR (CLEAR); COLOR URINE YELLOW (YELLOW)
[2023-06-18 12:38] LABS: GLUCOSE URINE NEGATIVE (NEGATIVE); KETONES URINE NEGATIVE (NEGATIVE); LEUKOCYTE ESTERASE URINE NEGATIVE (NEGATIVE); NITRITE URINE NEGATIVE (NEGATIVE); OCCULT BLOOD URINE NEGATIVE (NEGATIVE); PROTEIN URINE NEGATIVE (NEGATIVE); SPECIFIC GRAVITY URINE 1.015 (1.005-1.030); UROBILINOGEN URINE 0.2 E.U./dL (0.2-1.0)
[2023-06-18 12:39] LABS: ALANINE AMINOTRANSFERASE 13 IU/L (10-49); ALBUMIN 3.8 g/dL (3.2-4.8); ASPARTATE AMINOTRANSFERASE 17 IU/L (<34); BILIRUBIN TOTAL 0.6 mg/dL (0.1-1.0); CALCIUM 8.5 mg/dL (8.7-10.4); CARBON DIOXIDE 18 mEq/L (21-32); CHLORIDE 116 mEq/L (98-107); CREATININE 1.2 mg/dL (0.6-1.0); GLUCOSE 128 mg/dL (70-105); POTASSIUM 3.7 mEq/L (3.5-5.1); PROTEIN TOTAL 6.2 g/dL (6.0-8.3); SODIUM 144 mEq/L (136-145); UREA NITROGEN BLOOD 19 mg/dL (9-23)
[2023-06-18 15:33] VITALS: BP 106/53; PULSE 69; RESP 20; TEMP 98.7
== END 2023-06-18 15:34 | disposition home or self-care (01) ==
LOC: ER 10:59
DX: R10.9 Unspecified abdominal pain (principal); Z98.890 Other specified postprocedural states; Z86.59 Personal history of other mental and behavioral disorders; Z86.39 Personal history of other endocrine, nutritional and metabolic disease
CPT/HCPCS: 99285; 74176; 96374; 96361; 96375; 80053; 81003; 83690; 85025; 36415; J1885; J2405; J7030; A4565

== ENCOUNTER 2023-08-11 08:40 | Emergency (ER) | payer MEDICARE, OTHER, MEDICAID ==
[~2023-08-11] VITALS: Ht 160 cm; Wt 61.0 kg
[2023-08-11 08:44] VITALS: O2SAT 100
[2023-08-11] MEDS ORDERED: ACETAMINOPHEN 325MG TABLET PO ONE (10:00)
[2023-08-11 10:07] LABS: HEMATOCRIT. 39.4 % (36.0-48.0); HEMOGLOBIN. 12.6 g/dL (12.0-16.0); MEAN CORPUSCULAR HGB CONC 32.1 g/dL (31.0-37.0); MEAN CORPUSCULAR VOLUME 102.9 fL (81.0-99.0); MEAN PLATELET VOLUME 7.7 fl (7.4-10.4); PLATELET 168 x1000/uL (130-400); RED BLOOD CELL COUNT 3.83 mill/uL (4.2-5.4); RED CELL DISTRIBUTION WIDTH 13.1 % (11.6-14.6); WHITE BLOOD COUNT 5.6 x1000/uL (4.5-11.0)
[2023-08-11 10:10] LABS: DIFFERENTIAL COMMENT 1
[2023-08-11 10:17] LABS: INR 1.1; PROTHROMBIN TIME 11.4 sec (9.6-11.0)
[2023-08-11 10:33] LABS: ALANINE AMINOTRANSFERASE 8 IU/L (10-49); ALBUMIN 3.7 g/dL (3.2-4.8); ASPARTATE AMINOTRANSFERASE 16 IU/L (<34); BILIRUBIN TOTAL 0.5 mg/dL (0.1-1.0); CALCIUM 8.4 mg/dL (8.7-10.4); CARBON DIOXIDE 22 mEq/L (21-32); CHLORIDE 114 mEq/L (98-107); GLUCOSE 107 mg/dL (70-105); POTASSIUM 3.8 mEq/L (3.5-5.1); PROTEIN TOTAL 5.8 g/dL (6.0-8.3); SODIUM 141 mEq/L (136-145); UREA NITROGEN BLOOD 10 mg/dL (9-23)
[2023-08-11 10:38] LABS: ETHANOL BLOOD < 10 mg/dL (<10); TROPONIN I HIGH SENSITIVITY < 4 ng/L (3.0-34)
[2023-08-11 11:35] LABS: PLATELET ESTIMATE NORMAL
[2023-08-11 13:41] LABS: CLARITY URINE CLEAR (CLEAR); COLOR URINE YELLOW (YELLOW)
[2023-08-11 13:42] LABS: GLUCOSE URINE NEGATIVE (NEGATIVE); KETONES URINE NEGATIVE (NEGATIVE); LEUKOCYTE ESTERASE URINE NEGATIVE (NEGATIVE); NITRITE URINE NEGATIVE (NEGATIVE); OCCULT BLOOD URINE NEGATIVE (NEGATIVE); PH URINE 6.5 (4.5-8.0); PROTEIN URINE NEGATIVE (NEGATIVE); SPECIFIC GRAVITY URINE 1.009 (1.005-1.030); UROBILINOGEN URINE 0.2 E.U./dL (0.2-1.0)
[2023-08-11] MEDS ORDERED: MORPHINE SULFATE 2 MG/ML CPJ (NOT FOR IM USE) IV ONE (18:00)
[2023-08-11 19:11] VITALS: BP 119/49; PULSE 60; RESP 18; TEMP 98.4
[2023-08-11] MEDS ORDERED: LEVETIRACETAM 250MG TABLET PO NR (19:30)
== END 2023-08-11 19:52 | disposition short-term general hospital (02) ==
LOC: ER 08:40 → EDBEDREQ 09:34 → CANBEDREQ 13:23 → ER 19:52
DX: T82.9XXA Unspecified complication of cardiac and vascular prosthetic device, implant and graft, initial encounter (principal); E78.00 Pure hypercholesterolemia, unspecified; R51.9 Headache, unspecified; Z79.899 Other long term (current) drug therapy; Z98.890 Other specified postprocedural states; Z86.59 Personal history of other mental and behavioral disorders; Z86.39 Personal history of other endocrine, nutritional and metabolic disease
CPT/HCPCS: 80053; 81003; 80320; 83880; 83690; 85025; 85610; 84484; 36415; 71045; 70450; 93005; 96374; 99291; J2270; G0480

== ENCOUNTER 2023-09-24 12:51 | Emergency (ER) | payer MEDICARE, OTHER ==
[~2023-09-24] VITALS: Ht 165.1 cm; Wt 68.0 kg
[~2023-09-24 12:51] MED LIST changes: -ESLI600T PO; -GABA-529 PO; -HYDR-4001 PO; -IBUP-2029 MT; -TOPUD PO
[2023-09-24 13:07] VITALS: O2SAT 100
[2023-09-24 15:43] LABS: BASOPHILS % 0.7 % (0.0-2.0); DIFFERENTIAL COMMENT 0; EOSINOPHILS % 3.5 % (0.0-5.0); HEMATOCRIT. 40.1 % (36.0-48.0); HEMOGLOBIN. 13.1 g/dL (12.0-16.0); LYMPHOCYTES % 23.5 % (20.0-50.0); MEAN CORPUSCULAR HEMOGLOBIN 33.7 pg (28.0-32.0); MEAN CORPUSCULAR HGB CONC 32.6 g/dL (31.0-37.0); MEAN CORPUSCULAR VOLUME 103.3 fL (81.0-99.0); MEAN PLATELET VOLUME 7.7 fl (7.4-10.4); MONOCYTES % 6.4 % (2.0-8.0); NEUTROPHILS % 65.9 % (40.0-76.0); PLATELET 192 x1000/uL (130-400); RED BLOOD CELL COUNT 3.89 mill/uL (4.2-5.4); RED CELL DISTRIBUTION WIDTH 13.2 % (11.6-14.6); WHITE BLOOD COUNT 5.3 x1000/uL (4.5-11.0)
[2023-09-24 15:57] LABS: ALANINE AMINOTRANSFERASE 8 IU/L (10-49); ALBUMIN 4.4 g/dL (3.2-4.8); ASPARTATE AMINOTRANSFERASE 18 IU/L (<34); BILIRUBIN TOTAL 0.5 mg/dL (0.1-1.0); CALCIUM 8.9 mg/dL (8.7-10.4); CARBON DIOXIDE 21 mEq/L (21-32); CHLORIDE 113 mEq/L (98-107); CREATINE KINASE 75 IU/L (34-145); CREATININE 1.1 mg/dL (0.6-1.0); GLUCOSE 103 mg/dL (70-105); POTASSIUM 4.2 mEq/L (3.5-5.1); SODIUM 141 mEq/L (136-145); UREA NITROGEN BLOOD 20 mg/dL (9-23)
[2023-09-24 16:01] LABS: TROPONIN I HIGH SENSITIVITY < 4 ng/L (3.0-34)
[2023-09-24] MEDS ORDERED: TOPUD PO (16:20)
[2023-09-24 17:09] LABS: CLARITY URINE CLEAR (CLEAR); COLOR URINE YELLOW (YELLOW); GLUCOSE URINE NEGATIVE (NEGATIVE); KETONES URINE NEGATIVE (NEGATIVE); LEUKOCYTE ESTERASE URINE NEGATIVE (NEGATIVE); NITRITE URINE NEGATIVE (NEGATIVE); OCCULT BLOOD URINE NEGATIVE (NEGATIVE); PROTEIN URINE NEGATIVE (NEGATIVE); SPECIFIC GRAVITY URINE 1.021 (1.005-1.030); UROBILINOGEN URINE 0.2 E.U./dL (0.2-1.0)
[2023-09-24 17:43] VITALS: BP 141/54; PULSE 62; RESP 16; TEMP 98.1
== END 2023-09-24 17:48 | disposition home or self-care (01) ==
LOC: ER 14:23
DX: M79.10 Myalgia, unspecified site (principal); I49.9 Cardiac arrhythmia, unspecified; Z86.59 Personal history of other mental and behavioral disorders; Z98.890 Other specified postprocedural states; Z86.39 Personal history of other endocrine, nutritional and metabolic disease
CPT/HCPCS: 36415; 71045; 80053; 81003; 81025; 82550; 84484; 85025; 93005; 99285

== ENCOUNTER 2023-10-17 13:24 | Emergency (ER) | payer MEDICARE, OTHER ==
[~2023-10-17] VITALS: Ht 152.4 cm; Wt 53.0 kg
[~2023-10-17 13:24] MED LIST changes: +TOPUD PO
[2023-10-17 13:31] VITALS: BP 155/78; TEMP 98.6; O2SAT 100
[2023-10-17 13:33] VITALS: PULSE 87; RESP 15
[2023-10-17 14:52] LABS: BASOPHILS % 0.4 % (0.0-2.0); DIFFERENTIAL COMMENT 0; EOSINOPHILS % 2.3 % (0.0-5.0); HEMATOCRIT. 37.4 % (36.0-48.0); HEMOGLOBIN. 12.3 g/dL (12.0-16.0); LYMPHOCYTES % 12.9 % (20.0-50.0); MEAN CORPUSCULAR HEMOGLOBIN 33.8 pg (28.0-32.0); MEAN CORPUSCULAR VOLUME 102.3 fL (81.0-99.0); MEAN PLATELET VOLUME 7.6 fl (7.4-10.4); MONOCYTES % 5.6 % (2.0-8.0); NEUTROPHILS % 78.8 % (40.0-76.0); PLATELET 205 x1000/uL (130-400); RED BLOOD CELL COUNT 3.65 mill/uL (4.2-5.4); RED CELL DISTRIBUTION WIDTH 13.3 % (11.6-14.6)
[2023-10-17 15:00] LABS: PROTHROMBIN TIME 11.4 sec (9.6-11.0)
[2023-10-17 15:12] LABS: ALANINE AMINOTRANSFERASE 8 IU/L (10-49); ASPARTATE AMINOTRANSFERASE 14 IU/L (<34); BILIRUBIN TOTAL 0.3 mg/dL (0.1-1.0); CALCIUM 8.6 mg/dL (8.7-10.4); CARBON DIOXIDE 21 mEq/L (21-32); CHLORIDE 119 mEq/L (98-107); CREATININE 0.9 mg/dL (0.6-1.0); GLUCOSE 88 mg/dL (70-105); POTASSIUM 3.5 mEq/L (3.5-5.1); PROTEIN TOTAL 6.6 g/dL (6.0-8.3); SODIUM 148 mEq/L (136-145); UREA NITROGEN BLOOD 19 mg/dL (9-23)
[2023-10-17 15:27] LABS: TROPONIN I HIGH SENSITIVITY < 4 ng/L (3.0-34)
== END 2023-10-17 20:07 | disposition home or self-care (01) ==
LOC: ER 13:24
DX: R07.89 Other chest pain (principal); F03.90 Unspecified dementia, unspecified severity, without behavioral disturbance, psychotic disturbance, mood disturbance, and anxiety; R56.9 Unspecified convulsions; Z95.0 Presence of cardiac pacemaker; Z79.899 Other long term (current) drug therapy
CPT/HCPCS: 36415; 71045; 80053; 84484; 85025; 93005; 99285

== ENCOUNTER 2023-12-21 19:21 | Emergency (ER) | payer MEDICARE, OTHER ==
[~2023-12-21] VITALS: Ht 154.9 cm; Wt 59.0 kg
[2023-12-21 19:27] VITALS: O2SAT 100
[2023-12-21 19:40] VITALS: TEMP 98.6
[2023-12-21 20:30] LABS: BASOPHILS % 0.5 % (0.0-2.0); DIFFERENTIAL COMMENT 0; EOSINOPHILS % 1.3 % (0.0-5.0); HEMATOCRIT. 37.7 % (36.0-48.0); HEMOGLOBIN. 12.6 g/dL (12.0-16.0); LYMPHOCYTES % 8.7 % (20.0-50.0); MEAN CORPUSCULAR HEMOGLOBIN 34.1 pg (28.0-32.0); MEAN CORPUSCULAR HGB CONC 33.3 g/dL (31.0-37.0); MEAN CORPUSCULAR VOLUME 102.4 fL (81.0-99.0); MEAN PLATELET VOLUME 7.4 fl (7.4-10.4); MONOCYTES % 4.1 % (2.0-8.0); NEUTROPHILS % 85.4 % (40.0-76.0); PLATELET 224 x1000/uL (130-400); RED BLOOD CELL COUNT 3.68 mill/uL (4.2-5.4); WHITE BLOOD COUNT 5.3 x1000/uL (4.5-11.0)
[2023-12-21 20:32] LABS: CHLORIDE 116 mEq/L (98-107); POTASSIUM 3.6 mEq/L (3.5-5.1); SODIUM 141 mEq/L (136-145)
[2023-12-21 20:33] LABS: CALCIUM 8.9 mg/dL (8.7-10.4); CARBON DIOXIDE 16 mEq/L (21-32)
[2023-12-21] MEDS: SODIUM CHLORIDE 0.9% 1,000 ML IV ONE (20:35)
[2023-12-21 20:38] LABS: CREATININE 1.1 mg/dL (0.6-1.0); GLUCOSE 111 mg/dL (70-105); UREA NITROGEN BLOOD 19 mg/dL (9-23)
[2023-12-21 20:40] LABS: ALANINE AMINOTRANSFERASE 10 IU/L (10-49); ALBUMIN 4.3 g/dL (3.2-4.8); ASPARTATE AMINOTRANSFERASE 17 IU/L (<34); BILIRUBIN TOTAL 0.4 mg/dL (0.1-1.0); PROTEIN TOTAL 6.6 g/dL (6.0-8.3)
[2023-12-21 20:41] LABS: ETHANOL BLOOD < 10 mg/dL (<10)
[2023-12-21 21:54] VITALS: BP 134/69; PULSE 70; RESP 15
== END 2023-12-21 22:25 | disposition home or self-care (01) ==
LOC: ER 19:21
DX: R56.9 Unspecified convulsions (principal); Z95.0 Presence of cardiac pacemaker; Z79.899 Other long term (current) drug therapy
CPT/HCPCS: 80053; 80320; 85025; 36415; 71045; 96360; 99284; J7030; G0480

== ENCOUNTER 2024-04-18 12:27 | Emergency (ER) | payer MEDICARE, OTHER ==
[~2024-04-18] VITALS: Ht 152.4 cm; Wt 60.0 kg
[2024-04-18 12:46] VITALS: BP 128/76; PULSE 75; RESP 18; TEMP 98.2; O2SAT 100
[2024-04-18 13:24] LABS: BASOPHILS % 0.5 % (0.0-2.0); DIFFERENTIAL COMMENT 0; EOSINOPHILS % 2.9 % (0.0-5.0); HEMATOCRIT. 35.5 % (36.0-48.0); HEMOGLOBIN. 11.5 g/dL (12.0-16.0); LYMPHOCYTES % 13.4 % (20.0-50.0); MEAN CORPUSCULAR HEMOGLOBIN 34.4 pg (28.0-32.0); MEAN CORPUSCULAR HGB CONC 32.4 g/dL (31.0-37.0); MEAN CORPUSCULAR VOLUME 106.1 fL (81.0-99.0); MEAN PLATELET VOLUME 7.6 fl (7.4-10.4); MONOCYTES % 5.1 % (2.0-8.0); NEUTROPHILS % 78.1 % (40.0-76.0); PLATELET 207 x1000/uL (130-400); RED BLOOD CELL COUNT 3.34 mill/uL (4.2-5.4); RED CELL DISTRIBUTION WIDTH 13.3 % (11.6-14.6); WHITE BLOOD COUNT 4.5 x1000/uL (4.5-11.0)
[2024-04-18 13:25] LABS: CALCIUM 8.6 mg/dL (8.7-10.4)
[2024-04-18 13:30] LABS: CREATININE 1.2 mg/dL (0.6-1.0)
[2024-04-18 14:27] LABS: TROPONIN I HIGH SENSITIVITY < 4 ng/L (3.0-34)
[2024-04-18] MEDS: CALCIUM 1250MG TABLET (500MG ELEMENTAL CALCIUM) PO NR (16:35)
== END 2024-04-18 17:19 | disposition home or self-care (01) ==
LOC: ER 12:27
DX: Z76.0 Encounter for issue of repeat prescription (principal); R51.9 Headache, unspecified; Z98.890 Other specified postprocedural states; Z79.899 Other long term (current) drug therapy
CPT/HCPCS: 36415; 71045; 80048; 84484; 85025; 93005; 99285

== ENCOUNTER 2024-07-25 08:25 | Emergency (ER) | payer MEDICARE, OTHER ==
[~2024-07-25] VITALS: Ht 162.6 cm; Wt 70.0 kg
[2024-07-25 08:28] VITALS: BP 167/76; PULSE 70; RESP 16; TEMP 98.1; O2SAT 100
[2024-07-25 09:29] LABS: BASOPHILS % 0.4 % (0.0-2.0); DIFFERENTIAL COMMENT 0; EOSINOPHILS % 1.3 % (0.0-5.0); HEMATOCRIT. 41.5 % (36.0-48.0); LYMPHOCYTES % 16.3 % (20.0-50.0); MEAN CORPUSCULAR HEMOGLOBIN 33.6 pg (28.0-32.0); MEAN CORPUSCULAR HGB CONC 31.4 g/dL (31.0-37.0); MEAN CORPUSCULAR VOLUME 107.1 fL (81.0-99.0); MEAN PLATELET VOLUME 7.9 fl (7.4-10.4); MONOCYTES % 2.9 % (2.0-8.0); NEUTROPHILS % 79.1 % (40.0-76.0); PLATELET 185 x1000/uL (130-400); RED BLOOD CELL COUNT 3.88 mill/uL (4.2-5.4); RED CELL DISTRIBUTION WIDTH 13.7 % (11.6-14.6); WHITE BLOOD COUNT 4.3 x1000/uL (4.5-11.0)
[2024-07-25 09:55] LABS: CARBON DIOXIDE 16 mEq/L (21-32); CHLORIDE 117 mEq/L (98-107); POTASSIUM 3.9 mEq/L (3.5-5.1); SODIUM 143 mEq/L (136-145)
[2024-07-25 09:56] LABS: CALCIUM 8.4 mg/dL (8.7-10.4)
[2024-07-25 10:00] LABS: CREATININE 1.1 mg/dL (0.6-1.0); GLUCOSE 111 mg/dL (70-105)
[2024-07-25 10:01] LABS: UREA NITROGEN BLOOD 16 mg/dL (9-23)
[2024-07-25 10:02] LABS: ALANINE AMINOTRANSFERASE 12 IU/L (10-49); ALBUMIN 3.9 g/dL (3.2-4.8); ASPARTATE AMINOTRANSFERASE 18 IU/L (<34)
[2024-07-25 10:03] LABS: BILIRUBIN TOTAL 0.5 mg/dL (0.1-1.0); PROTEIN TOTAL 5.9 g/dL (6.0-8.3)
[2024-07-25] MEDS: ONDANSETRON 4MG ODT PO ONE (12:03)
== END 2024-07-25 12:56 | disposition home or self-care (01) ==
LOC: ER 08:36
DX: R10.9 Unspecified abdominal pain (principal); Z90.49 Acquired absence of other specified parts of digestive tract; Z95.0 Presence of cardiac pacemaker; Z87.19 Personal history of other diseases of the digestive system; Z79.899 Other long term (current) drug therapy; Z79.82 Long term (current) use of aspirin
CPT/HCPCS: 99283; 80053; 83690; 85025; 36415; Q0162